=== PATIENT | female | born 1990 | race Two or more races ===

== ENCOUNTER 2023-04-21 08:33 | Outpatient (CLI) | payer OTHER ==
--- NOTE | 2023-04-21 18:11 | Ultrasound Report ---
PROCEDURE: Retroperitoneal INDICATIONS: FREQUENCY OF MICTURITION TECHNIQUE: Real-time scanning was performed of the retroperitoneal organs, with image documentation. COMPARISON: None. FINDINGS: Kidneys: Kidneys are normal in size. Right kidney measures 9.2 cm long; left kidney measures 10.1 c m long. Right renal cortical thickness is 0.7 cm; left renal cortical thickness is 2.7 cm. No solid masses, hydronephrosis, or nephrolithiasis. Bladder: Pre-void bladder volume is 161 mL. Post-void residual is 13 mL. Pre-void images demonstra te no intraluminal masses or stones. On pre-void images, bilateral ureteral jets are noted with colo r Doppler interrogation. (Of note, ureteral jets may not be detectable in up to 25% of cases due to insufficient differences in specific gravity between ureteral and bladder urine). Miscellaneous: No free abdominal fluid. IMPRESSION: Unremarkable ultrasound kidneys Reviewed by: Yaakov Ureña MD on 04/21/2023 5:10 PM HORACIO Approved by: Yaakov Ureña MD on 04/21/2023 5:10 PM AKDT Station ID: [id number]
== END 2023-04-21 08:34 | disposition home or self-care (01) ==
LOC: DI 08:33
PROVIDERS: ATTEND Student in an Organized Health Care Education/Training Program
DX: R10.2 Pelvic and perineal pain (principal); R35.0 Frequency of micturition